=== PATIENT | female | born 1965 | race Caucasian/White ===

== ENCOUNTER 2020-03-11 15:17 | Emergency (ER) | payer BC ==
[~2020-03-11] VITALS: Ht 152.4 cm; Wt 55.8 kg
[2020-03-11] MEDS ORDERED: LIPITOR10 MG PO (15:30)
[2020-03-11] MEDS ORDERED: NORCO 5-325 TA1 EAC2 PO (16:27)
[2020-03-11] MEDS ORDERED: IBUPROFEN 800800 M1 PO (16:27)
[2020-03-11] MEDS ORDERED: CRUTCHES MISCELL (16:43)
[2020-03-11 16:45] VITALS: BP 157/72
== END 2020-03-11 16:46 | disposition home or self-care (01) ==
LOC: M.ERS 15:17
DX: S82.491A Other fracture of shaft of right fibula, initial encounter for closed fracture (principal); X50.1XXA Overexertion from prolonged static or awkward postures, initial encounter; Y93.89 Activity, other specified; Y92.89 Other specified places as the place of occurrence of the external cause; Y99.8 Other external cause status